=== PATIENT | male | born 1980 | race Caucasian/White ===

== ENCOUNTER → 2016-09-12 | Outpatient (CLI) | payer OTHER ==
[2016-09-12 10:41] LABS: Basophils # (A) 0.1 k/uL (0-0.2); Basophils % (A) 1 %; CH 31.7; CHCM 34.3; Eosinophils # (A) 0.2 k/uL (0-0.7); Eosinophils % (A) 2 %; HCT 50.6 % (39.0-53.0); HDW 2.71; HGB 16.8 gm/dL (13.0-17.5); Luc # (Auto) 0.13; Luc % (Auto) 1; Lymphocytes # (A) 3.3 k/uL (1.0-4.8); Lymphocytes % (A) 35 %; MCH 30.9 pg (25.0-35.0); MCHC 33.3 g/dL (31.0-37.0); MCV 92.7 fL (80.0-100.0); Mean Platelet Volume 6.8; Monocytes # (A) 0.4 k/uL (0-1.0); Monocytes % (A) 4 %; Neutrophils # (A) 5.6 k/uL (1.3-7.7); Neutrophils % (A) 58 %; RBC 5.46 m/uL (4.30-5.90); RDW 13.5 % (11.5-15.5); WBC 9.6 k/uL (3.8-10.6)
[2016-09-12 11:13] LABS: Hemoglobin A1C 5.1 % (4.2-6.1)
[2016-09-12 12:04] LABS: ALT 74 U/L (21-72); AST 31 U/L (17-59); Alkaline Phosphatase 72 U/L (38-126); Anion Gap 15 mmol/L; Bilirubin, Delta 0.3 mg/dL (0.0-0.2); Blood Urea Nitrogen 16 mg/dL (9-20); C Reactive Protein 8.1 mg/L (<10.0); Calcium 9.8 mg/dL (8.4-10.2); Carbon Dioxide 28 mmol/L (22-30); Chloride 102 mmol/L (98-107); Cholesterol 210 mg/dL (<200); Glucose 89 mg/dL (74-99); HDL Cholesterol 39 mg/dL (40-60); Non-African American GFR(MDRD) >60 (>60 ml/min/1.73 sqM); Sodium 145 mmol/L (137-145); Total Bilirubin 0.7 mg/dL (0.2-1.3); Total Protein 8.1 g/dL (6.3-8.2); Triglycerides 104 mg/dL (<150)
[2016-09-12 12:53] LABS: Erythrocyte Sedimentation Rate 6 mm/hr (0-15)
== END | disposition home or self-care (01) ==
LOC: LABWHC1 10:07
PROVIDERS: ATTEND Internal Medicine Critical Care Medicine
DX: R53.83 Other fatigue (principal); R53.1 Weakness; R42 Dizziness and giddiness; Z79.899 Other long term (current) drug therapy
CPT/HCPCS: 84439; 80061; 80053; 85652; 82248; 83036; 84443; 85025; 86140; 82306; 36415; G0103

== ENCOUNTER → 2016-09-14 | Outpatient (CLI) | payer OTHER ==
--- NOTE | 2016-09-14 21:17 | CT ---
EXAMINATION TYPE: CT sinus wo con DATE OF EXAM: 09/14/2016 COMPARISON: EXAMINATION TYPE: CT sinus wo con DATE OF EXAM: 09/14/2016 COMPARISON: NONE HISTORY: Sinus pain and pressure. CT DLP: 672.00 mGycm. Automated Exposure Control for Dose Reduction was Utilized. TECHNIQUE: CT scan of the sinuses is performed without contrast, axial images are obtained, coronal r eformatted images are also reviewed. FINDINGS: Changes of mild to moderate ethmoidal sinusitis. No air-fluid levels. Minimal frontal sinus mucosal thickening. Remaining sinuses demonstrate no evidence of air-fluid level or mucosal thickeni ng. Mastoid air cells as visualized are clear. The ostiomeatal complex is patent bilaterally on the coronal images. Visualized portion of mastoid air cells show no abnormal opacification. The globes are intact bilate rally. IMPRESSION: 1. Mild to moderate chronic ethmoidal sinusitis.
== END | disposition home or self-care (01) ==
LOC: RADCTMAIN 19:24
PROVIDERS: ATTEND Internal Medicine Critical Care Medicine
DX: J32.2 Chronic ethmoidal sinusitis (principal)
CPT/HCPCS: 70486